=== PATIENT | female | born 1995 | race African-American/Black ===

== ENCOUNTER 2017-02-01 18:44 | Emergency (ER) | payer OTHER ==
[2017-02-01 18:48] VITALS: BP 124/57; BMI 21.5
[2017-02-01] MEDS ORDERED: IBUPROFEN 400 MG TABLET (FP) PO ONE (18:49)
--- NOTE | 2017-02-01 19:14 | PDOC ---
History of Present Illness - General Chief Complaint: Pain Stated Complaint: PAIN Time Seen by Provider: 02/01/17 19:11 History Source: Patient Exam Limitations: No Limitations - History of Present Illness Initial Comments: CHIEF COMPLAINT: 21 y/o febrile, tachycardic female c/o back pain today. HISTORY OF PRESENT ILLNESS: The patient states she woke up this morning feeling like she got "hit by a truck". She states she has had chills all day and left ear pain. She denies trauma to back, fall, RODRIGUEZ, neck pain, n/v/d, CP, SOB, abd pain, hematuria, dysuria. Vital signs on arrival are notable for pulse of 113 secondary to temp of 102. REVIEW OF SYSTEMS: GENERAL/CONSTITUTIONAL: +chills. No weakness. No weight change. HEAD, EYES, EARS, NOSE AND THROAT: No change in vision. No ear pain or discharge. No sore throat. CARDIOVASCULAR: No chest pain or shortness of breath. RESPIRATORY: No cough, wheezing, or hemoptysis. GASTROINTESTINAL: No abd pain, nausea, vomiting, diarrhea. GENITOURINARY: No dysuria, frequency, or change in urination. MUSCULOSKELETAL: No joint or muscle swelling or pain. No neck pain. +back pain. SKIN: No rash or easy bruising. NEUROLOGIC: No headache, vertigo, loss of consciousness, or loss of sensation. PHYSICAL EXAM: GENERAL: The patient is awake, alert, and fully oriented, in no acute distress. Pt is non toxic but ill appearing. HEAD: Normal with no signs of trauma. NECK: No tender, anterior cervical lymphadenopathy. ENT: Pupils equal, round and reactive to light, extraocular movements intact, sclera anicteric, conjunctiva clear. No tonsilar edema, exudate or erythema. Uvula midline. LUNGS: Clear to auscultation bilaterally. Normal excursion. No respiratory distress or use of accessory muscles. CV: RRR, S1/S2, no MRG. Cap refill < 2 sec. ABDOMEN: Soft, non-distended, non-tender even to deep palpation, no hepatomegaly or splenomegaly, no masses. No flank pain. BACK: No CVA TTP b/l. TTP of paravertebral muscles from T12-L1. No midline thoracic or lumbar spine TTP or step offs. EXTREMITIES: Normal range of motion, no edema. NEUROLOGICAL: Normal speech, normal gait. CN II-XII grossly intact. PSYCH: Normal mood, normal affect. SKIN: Warm, dry, normal turgor, no rashes or lesions noted. Past History - Past Medical History Allergies/Adverse Reactions: Allergies Allergy/AdvReac Type Severity Reaction Status Date / Time No Known Allergies Allergy Verified 02/01/17 18:48 Home Medications: Ambulatory Orders NK [No Known Home Medication] 02/01/17 Asthma: Yes Other medical history: SICKLE CELL TRAIT - Psycho/Social/Smoking Cessation Hx Suicidal Ideation: No Smoking History: Never smoked Hx Alcohol Use: No Drug/Substance Use Hx: No Hx Substance Use Treatment: No *Physical Exam - Vital Signs Last Vital Signs Temp Pulse Resp BP Pulse Ox 102.0 F H 113 H 20 124/57 100 02/01/17 18:45 02/01/17 18:45 02/01/17 18:45 02/01/17 18:45 02/01/17 18:45 ED Treatment Course - Medications Given in the ED: ED Medications Discontinued Medications Generic Name Dose Route Start Last Admin Trade Name Manny PRN Reason Stop Dose Admin Ibuprofen 400 mg 02/01/17 18:49 02/01/17 18:50 Motrin - PO 02/01/17 18:50 400 mg NOW ONE Administration Medical Decision Making - Medical Decision Making A/P: 21 y/o febrile, tachycardic female with back pain, chills and feeling like she got hit by a bus today. Plan is as follows: 1. Rapid strep 2. Influenza 3. hcg/UA rapid strep - negative Influenza A&B - negative hcg - negative The patient was given all of her results. Her temp and HR have decreased. Informed her she has a viral illness and needs to alternate between tylenol and motrin for fever, drink plenty of fluids and rest. instructed the patient to return to the ER with any worsening or concerning symptoms. The patient verbalizes understanding of all instructions, has no further questions and is awaiting discharge. *DC/Admit/Observation/Transfer Diagnosis at time of Disposition: Viral illness, Musculoskeletal back pain - Discharge Dispostion Disposition: HOME Condition at time of disposition: Improved - Patient Instructions Printed Discharge Instructions: DI for Musculoskeletal Pain, DI for Viral Syndrome Additional Instructions: Discharge Instructions: -Alternate taking 650mg of Tylenol and 400mg of Motrin every 4 hours for fever -Drink plenty of fluids -Get lots of rest -Follow up with your doctor in 1 week -Return to the ER with any worsening or concerning symptoms - Post Discharge Activity Work/School Note: Back to Work
[2017-02-01 19:30] LABS: URINE APPEARANCE CLEAR; URINE BILIRUBIN NEGATIVE (NEGATIVE); URINE BLOOD NEGATIVE (NEGATIVE); URINE COLOR LTYELLOW; URINE GLUCOSE (UA) NEGATIVE (NEGATIVE); URINE KETONE NEGATIVE (NEGATIVE); URINE NITRITE NEGATIVE (NEGATIVE); URINE PROTEIN NEGATIVE (NEGATIVE); URINE UROBILINOGEN 2.0 E.U/dl E.U./dl (0.2-1.0)
[2017-02-01 19:45] VITALS: PULSE 90
[2017-02-01 19:47] LABS: URINE LEUK ESTERASE 1+ (NEGATIVE)
[2017-02-01] MEDS ORDERED: ACETAMINOPHEN 325 MG TABLET (FP) PO ONE (19:53)
[2017-02-01] MEDS ORDERED: ACETAMINOPHEN 325 MG TABLET (FP) ONE (19:55)
[2017-02-01 20:02] LABS: URINE RBC <1 /hpf (0-3); URINE WBC 4 /hpf (3-5)
[2017-02-01 21:00] VITALS: TEMP 99.1
== END 2017-02-01 21:01 | disposition home or self-care (01) ==
LOC: JERFT 18:44
DX: B34.9 Viral infection, unspecified (principal)
CPT/HCPCS: 81003; 81015; 84703; 87070; 87430; 87804; 99281-25

== ENCOUNTER 2018-10-20 14:51 | Emergency (ER) | payer OTHER ==
[2018-10-20 15:02] VITALS: BMI 27.4
--- NOTE | 2018-10-20 15:49 | PDOC ---
History of Present Illness - General Chief Complaint: Headache Stated Complaint: HEADACHE Time Seen by Provider: 10/20/18 15:49 History Source: Patient Exam Limitations: No Limitations - History of Present Illness Initial Comments: 10/20/18 16:02 23 year old female with PMH sickle cell trait 34 weeks presented to ED for headache since 0900 today. Pt admitted to generalized weakness starting yesterday. Pt stated her headache started at 0900 today and is located behind her eyes, wrapping around her head, throbbing, aggravated by light/sound, slowly progressing. Pt stated she feels unsteady walking, which started today at 0900, as though she "cannot feel the ground beneath my feet". Pt admitted to shortness of breath, stating "it feels like it takes more effort to breathe than normal". Pt denied chest pain, cough, fever, runny nose, sore throat, ear pain, lower extremity swelling, abdominal pain, pelvic pain, vaginal bleeding, visual changes, focal weakness. Allergies: NKDA NIH Stroke Scale - Last Known Well Date/Time & Onset Date Last Known Well: 10/20/18 Time Last Known Well: 09:00 - Initial Evaluation Level of consciousness: Alert Ask patient the month and their age: Answers both correctly Ask patient to open & close eyes; make fist and let go: Obeys both correctly Best gaze (horizontal eye movement): Normal Visual field testing: No visual field loss Facial paresis (Show teeth/raise eyebrows/close eyes tight): Normal symmetrical movement Motor Function: Left Arm: Normal Motor Function: Right Arm: Normal (extends arm 90 (or 45) degrees for 10 seconds without drift Motor Function: Left Leg: Normal (extends leg 30 degrees for 5 seconds without drift) Motor Function: Right Leg: Normal (extends leg 30 degrees for 5 seconds without drift) Limb Ataxia: No ataxia Sensory(Use pinprick test arms,legs,trunk,face/side to side): Normal Best language (Describe picture, name items, read sentences): No Aphasia Dysarthria (read several words): Normal articulation Extinction and Inattention: No abnormality - Total Score NIH Stroke Scale Score: 0 Past History - Past Medical History Allergies/Adverse Reactions: Allergies Allergy/AdvReac Type Severity Reaction Status Date / Time pollen extracts Allergy Verified 10/20/18 15:01 Home Medications: Ambulatory Orders Vit 108/Iron/Folic AC [ One Tablet] 1 each PO DAILY 09/03/18 Asthma: Yes COPD: No Other medical history: sickle cell trait - Reproductive History Is Patient Now?: Yes (#): 3 Para: 1 Therapeutic (s) & number: Yes - Suicide/Smoking/Psychosocial Hx Smoking History: Never smoked Information on smoking cessation initiated: No Hx Alcohol Use: No Drug/Substance Use Hx: No Hx Substance Use Treatment: No Review of Systems - Review of Systems Able to Perform ROS?: Yes Comments:: 10/20/18 16:16 General: admitted to generalized weakness, body aches. denied fever, chills. HEENT: denied sore throat, rhinorrhea, ear pain. Heart: denied chest pain, palpitations, syncope, diaphoresis. Respiratory: admitted to shortness of breath. denied cough, sputum production, hemoptysis. Abdomen: denied abdominal pain, nausea, vomiting, diarrhea, constipation, blood in stool. : denied dysuria, increased urinary frequency, hematuria, urinary incontinence , flank pain. Back: denied back pain. Musculoskeletal: denied joint pain, muscle pain, joint swelling. Neurological: admitted to headache, unsteady gait. denied dizziness, numbness, tingling, weakness. Skin: denied rash, laceration, abrasion. *Physical Exam - Vital Signs Last Vital Signs Temp Pulse Resp BP Pulse Ox 98.6 F 73 18 112/57 L 99 10/20/18 14:59 10/20/18 14:59 10/20/18 14:59 10/20/18 14:59 10/20/18 14:59 - Physical Exam Comments: 10/20/18 16:17 Neuro examination limited by pt cooperation. Constitutional: Well-nourished, Well-developed, appearing stated age. HEENT: head is normocephalic, atraumatic. EOMI. PERRLA. Neck: supple. Full ROM. no nuchal rigidity. Heart: regular rhythm. no murmurs, rubs or gallops. Lungs: clear to auscultation bilaterally. no crackles, rhonchi or wheezing. no stridor. Abdomen: soft, nontender, gravid. normal bowel sounds. no rebound, guarding, masses. Extremities: Peripheral pulses intact. No lower extremity edema. Neurological: CN 2-12 intact. 5/5 strength all extremities. Sensation intact. pt ambulated unassisted to bathroom, normal gait. Psych: awake, alert, oriented x3. Follows commands. Answers questions appropriately. Moderate Sedation - Procedure Monitoring Vital Signs: Procedure Monitoring Vital Signs Temperature 98.6 F 10/20/18 14:59 Pulse Rate 73 10/20/18 14:59 Respiratory Rate 18 10/20/18 14:59 Blood Pressure 112/57 L 10/20/18 14:59 O2 Sat by Pulse Oximetry (%) 99 10/20/18 14:59 ED Treatment Course - LABORATORY CBC & Chemistry Diagram: 10/20/18 16:05 10/20/18 16:00 Medical Decision Making - Medical Decision Making 10/20/18 16:36 23 year old female with PMH sickle cell trait 34 weeks presented to ED for headache, generalized weakness, SOB and unsteady gait. Initial Vital Signs Temp Pulse Resp BP Pulse Ox 98.6 F 73 18 112/57 L 99 10/20/18 14:59 10/20/18 14:59 10/20/18 14:59 10/20/18 14:59 10/20/18 14:59 Afebrile. No tachycardia. No tachypnea. Mild diastolic hypotension. - Pt is No hypoxia on room air Labs ordered: CBC, CMP, troponin, BNP, UA/UC, coags, T/S Imaging ordered: Abdomen ultrasound Medications ordered: tylenol IV, normal saline bolus 1000 cc EKG performed at 1634: rate 71, regular rhythm, normal axis, normal intervals, T waves flipped in anterior leads without reciprocal changes. No prior to compare. 10/20/18 16:54 CBC WBC 12.8 K/mm3 (4.0-10.0) H 10/20/18 16:05 RBC 3.45 M/mm3 (3.60-5.2) L 10/20/18 16:05 Hgb 10.5 GM/dL (10.7-15.3) L 10/20/18 16:05 Hct 30.4 % (32.4-45.2) L D 10/20/18 16:05 MCV 88.1 fl (80-96) 10/20/18 16:05 MCH 30.4 pg (25.7-33.7) D 10/20/18 16:05 MCHC 34.5 g/dl (32.0-36.0) 10/20/18 16:05 RDW 13.7 % (11.6-15.6) D 10/20/18 16:05 Plt Count 136 K/MM3 (134-434) 10/20/18 16:05 MPV 10.3 fl (7.5-11.1) 10/20/18 16:05 Absolute Neuts (auto) 9.4 K/mm3 (1.5-8.0) H 10/20/18 16:05 Neutrophils % 73.2 % (42.8-82.8) 10/20/18 16:05 Neutrophils % (Manual) 70.0 % (42.8-82.8) 10/20/18 16:05 Band Neutrophils % 3.0 % 10/20/18 16:05 Lymphocytes % 15.4 % (8-40) D 10/20/18 16:05 Lymphocytes % (Manual) 15.0 % (8-40) 10/20/18 16:05 Monocytes % 10.0 % (3.8-10.2) 10/20/18 16:05 Monocytes % (Manual) 11 % (3.8-10.2) H 10/20/18 16:05 Eosinophils % 0.9 % (0-4.5) 10/20/18 16:05 Eosinophils % (Manual) 1.0 % (0-4.5) 10/20/18 16:05 Basophils % 0.5 % (0-2.0) 10/20/18 16:05 Basophils % (Manual) 0.0 % (0-2.0) 10/20/18 16:05 Nucleated RBC % 0 % (0-0) 10/20/18 16:05 Platelet Estimate Adequate 10/20/18 16:05 Leukocytosis with left shift. Borderline normocytic anemia. Normal platelets. CMP Sodium 138 mmol/L (136-145) 10/20/18 16:00 Potassium 3.5 mmol/L (3.5-5.1) 10/20/18 16:00 Chloride 107 mmol/L (98-107) 10/20/18 16:00 Carbon Dioxide 26 mmol/L (21-32) 10/20/18 16:00 Anion Gap 6 MMOL/L (8-16) L 10/20/18 16:00 BUN 4 mg/dL (7-18) L 10/20/18 16:00 Creatinine 0.5 mg/dL (0.55-1.3) L 10/20/18 16:00 Creat Clearance w eGFR > 60 (>60) 10/20/18 16:00 Random Glucose 82 mg/dL (74-106) 10/20/18 16:00 Calcium 8.0 mg/dL (8.5-10.1) L 10/20/18 16:00 Total Bilirubin 0.2 mg/dL (0.2-1) 10/20/18 16:00 AST 15 U/L (15-37) 10/20/18 16:00 ALT 16 U/L (13-61) 10/20/18 16:00 Alkaline Phosphatase 92 U/L (45-117) 10/20/18 16:00 Troponin I < 0.02 ng/ml (0.00-0.05) 10/20/18 16:00 B-Natriuretic Peptide 52.7 pg/ml (5-125) 10/20/18 16:00 Total Protein 6.4 g/dl (6.4-8.2) 10/20/18 16:00 Albumin 2.9 g/dl (3.4-5.0) L 10/20/18 16:00 No electrolyte abnormalities. No AMY. No transaminitis. Normal troponin. Normal BNP. Normal total bilirubin. Urine Test Results Urine Color Straw 10/20/18 16:24 Urine Appearance Clear 10/20/18 16:24 Urine pH 7.0 (5.0-8.0) 10/20/18 16:24 Ur Specific [place] 1.004 (1.010-1.035) L 10/20/18 16:24 Urine Protein Negative (NEGATIVE) 10/20/18 16:24 Urine Glucose (UA) Negative (NEGATIVE) 10/20/18 16:24 Urine Ketones Negative (NEGATIVE) 10/20/18 16:24 Urine Blood Negative (NEGATIVE) 10/20/18 16:24 Urine Nitrite Negative (NEGATIVE) 10/20/18 16:24 Urine Bilirubin Negative (<2.0 mg/dL) 10/20/18 16:24 Ur Leukocyte Esterase Trace (NEGATIVE) 10/20/18 16:24 Ur Epithelial Cells Rare /HPF (FEW) 10/20/18 16:24 WBC = 4 No bacteria. No UTI. No protein in urine. Influenza A/B testing negative. 10/20/18 17:38 Pt reassessed, reported headache same, reported all over body aches worsening. Neuro examination: romberg positive. finger to nose normal. unsteady gait. 5/5 strength all extremities. full sensation throughout. CN2-12 intact. Hypercoaguable state of plus sickle cell trait concerning for cerebral venous sinus thrombosis. Acute intracranial bleed also on differential. Neuro national account executive, Dr. Molina paged. US shows (+) FHR. - Pending official report. 10/20/18 17:59 I spoke with the patient about the possible need for head CT, and the risks of radiation to herself and the baby. I discussed that we would use a shield for her belly, to minimize radiation to the baby. We discussed that the radiation was less risk to a third trimester than an earlier , and that the risk of not performing the CT would be missing an acute bleed or venous sinus clot, which could be detrimental to her and the baby's health, or even cause . She and her partner stated they understood the risks and would be open to having a CT performed if needed. - Pending neuro recommendations 10/20/18 19:07 Vital Signs Temperature 99.5 F 10/20/18 18:39 Pulse Rate 75 10/20/18 18:39 Respiratory Rate 20 10/20/18 18:39 Blood Pressure 95/68 10/20/18 18:39 O2 Sat by Pulse Oximetry (%) 98 10/20/18 18:39 I spoke with imaging national account executive radiologist, who advised CTA of cerebral arteries with 10 second delay to be able to access for cerebral venous sinus thrombosis. I spoke with Dr. Molina, who recommend above imaging, possible transfer depending on results of CT. He stated he will come to ED to evaluate the patient. 10/20/18 19:16 I spoke with OB national account executive Dr. West, who will consult, stated she will send nurse down to [facility] after CT scan. 10/20/18 19:38 Pt signed consent form for CTA. Pt signed out to Dr. Dowling, who is with patient at bedside at CT. Dr. Molina currently in ED for evaluation of patient. 10/21/18 20:36 Follow up: Official Abdominal US report: single intrauterine gestation mesuring 34 weeks and 4 days. FHR 137 bpm. fetus is in cephalic position. anterior placenta. normal [place]. *DC/Admit/Observation/Transfer Diagnosis at time of Disposition: Migraine - Discharge Dispostion Disposition: HOME Condition at time of disposition: Stable - Referrals Referrals: Jeremy Molina MD [Staff Physician] - Shell Figueredo [Primary Care Provider] - - Patient Instructions Printed Discharge Instructions: DI for Migraine, DI for -- Discomforts and Remedies Additional Instructions: You were seen in the emergency room for a headache and weakness. You were seen by a neurologist and an OB. The neurologist recommended a CT scan of your head which ruled out a brain bleed and a clot in your brain. The neurologist felt that you likely had a migraine which caused your symptoms today. You can take tylenol for your further headaches, and you should follow up with a neurologist for a possible migraine disorder and further evaluation/management of your headaches following your . If you have any further severe or concerning symptoms you should be evaluated by your doctor or return to the emergency department immediately. You should follow up with your primary care physician within one week and with your OB as scheduled. - Post Discharge Activity
[2018-10-20] MEDS ORDERED: SODIUM CHLORIDE 1,000 ML IV STA ×2 (16:02→19:11)
[2018-10-20] MEDS ORDERED: ACETAMINOPHEN 1000 MG/100 ML VIAL (NON FORMULARY) IVPB ONE (16:03)
[2018-10-20] MEDS ORDERED: ACETAMINOPHEN INJECTION 100 ML IVPB ONE (16:09)
[2018-10-20 16:12] LABS: BASO % 0.5 % (0-2.0); EOS % 0.9 % (0-4.5); HEMATOCRIT 30.4 % (32.4-45.2); HEMOGLOBIN 10.5 GM/dL (10.7-15.3); LYMPH % 15.4 % (8-40); MCH 30.4 pg (25.7-33.7); MCHC 34.5 g/dl (32.0-36.0); MEAN CELL VOLUME 88.1 fl (80-96); MEAN PLT VOLUME 10.3 fl (7.5-11.1); NEUT % 73.2 % (42.8-82.8); PLATELET COUNT 136 K/MM3 (134-434); RBC 3.45 M/mm3 (3.60-5.2); RDW 13.7 % (11.6-15.6); WHITE BLOOD COUNT 12.8 K/mm3 (4.0-10.0)
[2018-10-20 16:30] LABS: PLATELET ESTIMATE ADEQUATE
--- NOTE | 2018-10-20 16:34 | PDOC ---
Attending Attestation - HPI HPI: 10/20/18 16:40 The patient is a 23 year old female(34 weeks , not high risk) with a significant past medical history of asthma and sickle cell trait who presents to the emergency department with a headache since earlier today. She states that her headache is localized behind her eyes and worsens with light and sound. She also reports some generalized weakness for about 2 days. She denies any other symptoms. She denies any fever chills, nausea, vomiting, diarrhea, constipation, urinary symptoms. She denies any chest pain, shortness or breath, runny nose or cough. She denies taking any medication for her headache or and past episodes of headache. The patient denies any other complaints. Documentation prepared by Catherine Gan, acting as pediatric medical assistant for Marcia López MD. <Catherine Gan - Last Filed: 10/20/18 16:57> - Resident Resident Name: Leia Salvador - ED Attending Attestation I have performed the following: I have examined & evaluated the patient, The case was reviewed & discussed with the resident, I agree w/resident's findings & plan, Exceptions are as noted - Physicial Exam PE: GENERAL: Awake, alert, and fully oriented, in no acute distress. Appears uncomfortable. HEAD: No signs of trauma EYES: PERRLA, EOMI, sclera anicteric, conjunctiva clear ENT: Auricles normal inspection, hearing grossly normal, nares patent, oropharynx clear without exudates. Moist mucosa NECK: Normal ROM, supple, no lymphadenopathy, JVD, or masses LUNGS: Breath sounds equal, clear to auscultation bilaterally. No wheezes, and no crackles HEART: Regular rate and rhythm, normal S1 and S2, no murmurs, rubs or gallops ABDOMEN: Soft, nontender, normoactive bowel sounds. No guarding, no rebound. No masses EXTREMITIES: Normal range of motion, no edema. No clubbing or cyanosis. No cords, erythema, or tenderness NEUROLOGICAL: Cranial nerves II through XII grossly intact. Normal speech, normal gait. Sensation intact. +Dec strength throughout (4/5). SKIN: Warm, Dry, normal turgor, no rashes or lesions noted. - Medical Decision Making 10/20/18 16:55 Pt with no prior history of headaches now with headache and diffuse weakness. Unclear if exam findings are due to her discomfort (or poor cooperation as a result of discomfort). Will give IV fluids and tylenol while awaiting lab results. If she is not significantly improved, will d/w neuro regarding possible imaging. <Marcia López - Last Filed: 10/20/18 18:05>
[2018-10-20 16:40] LABS: URINE APPEARANCE CLEAR; URINE BILIRUBIN NEGATIVE (<2.0 mg/dL); URINE COLOR STRAW; URINE GLUCOSE (UA) NEGATIVE (NEGATIVE); URINE KETONE NEGATIVE (NEGATIVE); URINE LEUK ESTERASE TRACE (NEGATIVE); URINE NITRITE NEGATIVE (NEGATIVE); URINE PROTEIN NEGATIVE (NEGATIVE); URINE UROBILINOGEN NEGATIVE mg/dL (0.2-1.0)
[2018-10-20 16:42] LABS: EPI CELLS RARE /HPF (FEW)
[2018-10-20 16:47] LABS: ALBUMIN 2.9 g/dl (3.4-5.0); ALK PHOS 92 U/L (45-117); ANION GAP 6 MMOL/L (8-16); BILIRUBIN,TOTAL 0.2 mg/dL (0.2-1); BLOOD UREA NITROGEN 4 mg/dL (7-18); CHLORIDE 107 mmol/L (98-107); CO2 26 mmol/L (21-32); CREATININE 0.5 mg/dL (0.55-1.3); GLUCOSE,RANDOM 82 mg/dL (74-106); N-TERMINAL BNP 52.7 pg/ml (5-125); POTASSIUM 3.5 mmol/L (3.5-5.1); SGOT/AST 15 U/L (15-37); SGPT/ALT 16 U/L (13-61); SODIUM 138 mmol/L (136-145); TOT PROT 6.4 g/dl (6.4-8.2)
--- NOTE | 2018-10-20 19:22 | PDOC ---
*Physical Exam - Vital Signs Last Vital Signs Temp Pulse Resp BP Pulse Ox 99.5 F 75 20 95/68 98 10/20/18 18:39 10/20/18 18:39 10/20/18 18:39 10/20/18 18:39 10/20/18 18:39 - Physical Exam Comments: 10/20/18 19:20 23 yo female 32 weeks with headache and unsteady gait, signout received from day resident. case discussed with Neuro and OB who are aware and will evaluate the patient. Imaging pending. Will follow and rediscuss with neuro and OB pending imaging studies. 10/20/18 19:23 GEN: A&O, no acute distress HEENT: PERRLA, EOMI NECK: supple, no lymphadenopathy HEART: RRR, systolic murmur noted LUNGS: CTA b/l, No wheezes or crackles ABDOMEN: Soft, nontender, appears stated gestation EXTREMITIES: trace peripheral edema, calves nontender NEURO: CN II-XII in tact, no motor deficits noted on limited exam prior to pt receiving CT scan ED Treatment Course - LABORATORY CBC & Chemistry Diagram: 10/20/18 16:05 10/20/18 16:00 - ADDITIONAL ORDERS Additional order review: Laboratory Results 10/20/18 10/20/18 16:24 16:00 Sodium 138 Potassium 3.5 Chloride 107 Carbon Dioxide 26 Anion Gap 6 L BUN 4 L Creatinine 0.5 L Creat Clearance w eGFR > 60 Random Glucose 82 Calcium 8.0 L Total Bilirubin 0.2 AST 15 ALT 16 Alkaline Phosphatase 92 Troponin I < 0.02 B-Natriuretic Peptide 52.7 Total Protein 6.4 Albumin 2.9 L Urine Color Straw Urine Appearance Clear Urine pH 7.0 Ur Specific [place] 1.004 L Urine Protein Negative Urine Glucose (UA) Negative Urine Ketones Negative Urine Blood Negative Urine Nitrite Negative Urine Bilirubin Negative Urine Urobilinogen Negative Ur Leukocyte Esterase Trace Urine WBC (Auto) 4 Urine RBC (Auto) None Ur Epithelial Cells Rare 10/20/18 16:05 RBC 3.45 L MCV 88.1 MCHC 34.5 RDW 13.7 D MPV 10.3 Neutrophils % 73.2 Lymphocytes % 15.4 D Monocytes % 10.0 Eosinophils % 0.9 Basophils % 0.5 - Medications Given in the ED: ED Medications Discontinued Medications Generic Name Dose Route Start Last Admin Trade Name Freq PRN Reason Stop Dose Admin Acetaminophen 1,000 mg 10/20/18 16:03 10/20/18 16:33 Ofirmev Injection - IVPB 10/20/18 16:04 1,000 mg ONCE ONE Administration Sodium Chloride 1,000 mls @ 1,000 mls/hr 10/20/18 16:02 10/20/18 16:33 Normal Saline - IV 10/20/18 17:01 1,000 mls/hr ASDIR STA Administration Medical Decision Making - Medical Decision Making 10/20/18 20:38 CTA Brain and noncontrast CT head done and reviewed by neurology. No signs of Subdural bleed or venous sinus thrombosis. Neurological signs somewhat improved from earlier, and neurology feels this episode was likely a migraine. Recommends neurological evaluation following for further management of migraine disorder. Case discussed with OB who also feels the patient is medically safe to go home following cardiac monitoring. *DC/Admit/Observation/Transfer Diagnosis at time of Disposition: Migraine - Discharge Dispostion Disposition: HOME Condition at time of disposition: Stable Decision to Admit order: No - Referrals Referrals: Shell Figueredo [Primary Care Provider] - Jeremy Molina MD [Staff Physician] - - Patient Instructions Printed Discharge Instructions: DI for Migraine, DI for -- Discomforts and Remedies Additional Instructions: You were seen in the emergency room for a headache and weakness. You were seen by a neurologist and an OB. The neurologist recommended a CT scan of your head which ruled out a brain bleed and a clot in your brain. The neurologist felt that you likely had a migraine which caused your symptoms today. You can take tylenol for your further headaches, and you should follow up with a neurologist for a possible migraine disorder and further evaluation/management of your headaches following your . If you have any further severe or concerning symptoms you should be evaluated by your doctor or return to the emergency department immediately. You should follow up with your primary care physician within one week and with your OB as scheduled. - Post Discharge Activity
[2018-10-20 20:15] LABS: INR 0.95 (0.83-1.09); PROTHROMBIN TIME (PATIENT) 11.2 SEC (9.7-13.0)
[2018-10-20 20:17] LABS: ACTIVATED PTT 27.2 SECONDS (25.2-36.5)
--- NOTE | 2018-10-20 20:50 | CONSULT ---
Consult - text type - Consultation Consultation Note: NEUROLOGY CONSULTATION is greatly appreciated: Events reviewed and discussed with the ED staff and Dr. West. This 23 yo is now 35 weeks in ER with acute headache this AM. PMH sig for Sickle cell trait. She describes episodic headaches since teenage years. These occur about 1/month without obvious precipitating factors. They improved in her pregnancies (none in her first and only this one in her second). Headaches come "out of the blue without warning" as pressure behind her eyes and temples. +N. -V, + PP, +PP +KP and dizziness. Today's headache is identical to her prior, stereotyped, RODRIGUEZ's with all the associated features as well as dizziness and transient unsteadiness. All symptoms are now improving. CT of Head (reviewed): Normal CT Angio (reviewed): normal arterial phase and probably patent interhemispherid sinus. Transverse and sigmoid sinuses are not well visualized. EXAM: Neck supple. In NAD NEURO: MS/Speech: Normal CN II-XII: Normal. Motor: No drift or tremor. Normal strength, tone and bulk. Normal reflexes. Downgoing toes Coord: No FTN dystaxia Sensory: Normal Gait: Normal IMP: Normal Neurological Exam. Migraine headaches. SUGGEST: Await official reading of CTA/delayed phase If inconclusive keep Pt for MR venogram tomorrow monitoring as per Dr. West. Tylenol 1 gm PO q 6 hrs PRN headache. Thank you very much, Jeremy Molina MD
[2018-10-20 22:03] VITALS: BP 110/68; PULSE 88; TEMP 98.2
--- NOTE | 2018-10-21 01:12 | CON.OBG ---
Consult Consult Specialty:: ob consult Referred by:: Leia Ventura ( [facility]) Reason for Consultation:: 34.5 weeks pregn with severe headache - History of Present Illness Chief Complaint: 23 yrs , 34.5 weeks by dates & sono known c/o sickle cell trait , presented in ED with onset of sudden sever headache , behind eyeballs, radiating to temples ,accompanied by dizziness, she is bothered by light ,unable to walk, felt genralized weakness History of Present Illness: pt is known to take care at [address] [place] [address] . panel 04/18/18 Hbsag neg, , Rpr nr, O Pos, [id number], Sickle cell trait ps , significant other not tested , rubella iimune, varicella iimune , hiv nr sono gram done 05/09/18 --11.1 wks , edc by sono 11/27/18 h/ochlamydia & gonorrhea positive , treated with Rocephine & zithromax h/o trichomonasis pos treated 08/23/18 1 hr gtt 69, rpr nr, quantiferon neg last sono done on 10/08/18 vx, 32.5 weeks, dimple 14.1 cm, , efw 2100gm (4'16')-, cx 3.27 - History Source History Provided By: Patient, Medical Record Limitations to Obtaining History: No Limitations - Past Medical History SALES CONSULTING DIRECTOR: Yes: Migraine (?migraine headaches when not , pt decribed when Dr Molina neurologist interrogated her .), Other (headache last month once .) Cardio/Vascular: No: HTN Pulmonary: Yes: Asthma (rx albuterol inhaler prn ) Gastrointestinal: Yes: Other (declined ) Renal/: Yes: UTI (06/2017) ...LMP: 02/20/18 (edc 11/27/18.dates & sono compatible ) ...: Yes ...: 3 (G1 Ind ab 06/2010) ...Para: 1 (G2 40 wks , 7'15" PPH, rx 2 units blood transfusion at [facility]) Heme/Onc: Yes: Anemia, Other (h/o sickle cell trait pos . Her 1st chld also sickle cell trait pos ) Infectious Disease: Yes: STD's (hx herpes gentalia, no recenet out break, , asymptomatic.h/o gonorrhea & chlamydia positive in 2018 ). No: AIDS, HIV, Tuberculosis Psych: No: Addictions, Anxiety, Bipolar, Depression, Panic, Psychosis, Schizophrenia, Other Endocrine: No: Diabetes Insipidus, Diabetes Mellitus, Hyperthyroidism, Hypothyroidism - Past Surgical History Past Surgical History: Yes: None - Alcohol/Substance Use Hx Alcohol Use: No History of Substance Use: reports: None - Smoking History Smoking history: Never smoked - Social History ADL: Independent History of Recent Travel: No Home Medications - Allergies Allergies/Adverse Reactions: Allergies Allergy/AdvReac Type Severity Reaction Status Date / Time pollen extracts Allergy Verified 10/20/18 15:01 - Home Medications Home Medications: Ambulatory Orders Vit 108/Iron/Folic AC [ One Tablet] 1 each PO DAILY 09/03/18 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 No: CVA Tenderness - Left, CVA Tenderness - Right Vaginal Exam: Yes: Normal. No: Bleeding Cervix: Yes: Normal, Other (cx closed long, firm) Uterus: Yes: Other (35 weeks size uterus cephalic presentation FHR Midline 150 bpm no suprapubic tenderness) Adnexa: Not Palpable: Bilateral Breast(s): Yes: WNL Extremities: Yes: WNL. No: Calf Tenderness Edema: No Integumentary: Yes: Tattoos Neurological: Yes: WNL, Alert, Oriented, Cran Nerves II-XII Intact. No: Confusion, Loss of Sensation, Numbness ...Motor Strength: WNL Psychiatric: Yes: WNL, Alert, Oriented Labs: CBC, BMP 10/20/18 16:05 10/20/18 16:00 Laboratory Tests 10/20/18 10/20/18 16:00 16:24 AST 15 ALT 16 Urine Protein Negative Problem List - Problems (1) with 34 completed weeks gestation Code(s): Z3A.34 - 34 WEEKS GESTATION OF (2) Headache Code(s): R51 - HEADACHE Assessment/Plan 23 yrs 34.5 weeks gestation with headache presented ? neuological symptoms . preclempsia, gestational HtN is ruled out head ct scan was done , which I was told by Dr Molina the neurologist that it was neg . Dr Molina told me his imression is Migraine , since she is feeling better whe we both together were ther to see her , he suggested she csn be dischsrged if ob clear. NST was done , no uc noted, FHR 150 bpm, reactive, cat-1 tracing pt is icleaerd obstetrically to be discharged she will continue her prenatl vit drinkplenty po fluids rest po tylenol for headache relaxation ex pt can be discharged
--- NOTE | 2018-10-21 22:12 | EKG ---
Test Reason : Blood Pressure : / mmHG Vent. Rate : 071 BPM Atrial Rate : 071 BPM P-R Int : 138 ms QRS Dur : 070 ms QT Int : 380 ms P-R-T Axes : 061 044 031 degrees QTc Int : 412 ms NORMAL SINUS RHYTHM T WAVE ABNORMALITY, CONSIDER ANTERIOR ISCHEMIA ABNORMAL ECG NO PREVIOUS ECGS AVAILABLE Confirmed by AUSTYN OLIVAS MD ([id number]) on 10/21/2018 10:12:02 PM Referred By: Confirmed By:AUSTYN OLIVAS MD
--- NOTE | 2018-10-22 10:34 | PDOC ---
Patient Follow-up (Call Back) - Post ED Follow - Up Chief Complaint: Headache Condition at time of discharge: Stable Disposition at time of original discharge: HOME Reason for Call Back: Radiology (Received call from Dr. reed who states final read on ct of the head, show possible dilation and recommends follow up MRA, outpatient. Patient called and inform to go to primary physician for referral for outpatient MRI/MRA.)
== END 2018-10-20 22:03 | disposition home or self-care (01) ==
LOC: JER 14:51
PROC: 3E0337Z Introduction of Electrolytic and Water Balance Substance into Peripheral Vein, Percutaneous Approach (ICD-10-PCS; principal; 2018-10-20)
PROC: 3E033NZ Introduction of Analgesics, Hypnotics, Sedatives into Peripheral Vein, Percutaneous Approach (ICD-10-PCS; 2018-10-20)
DX: O26.893 Other specified pregnancy related conditions, third trimester (principal); G43.909 Migraine, unspecified, not intractable, without status migrainosus; O99.013 Anemia complicating pregnancy, third trimester; D57.3 Sickle-cell trait; Z3A.34 34 weeks gestation of pregnancy
CPT/HCPCS: 36415; 70450-TC; 70496-TC; 76815-TC; 80053; 81003; 81015; 83880; 84484; 85025; 85610; 85730; 86850; 86900; 86901; 87086; 87804; 93005; 93010; 96361; 96374; 99284-25; J0131; J7030

== ENCOUNTER 2018-11-24 16:30 | Inpatient (IN) | payer OTHER ==
[2018-11-24 17:23] VITALS: BMI 27.8
[2018-11-24] MEDS ORDERED: DEXTROSE 5%-LACTATED RINGERS 1,000 ML IV SCH (17:45)
[2018-11-24] MEDS ORDERED: BUTORPHANOL TARTRATE 1 MG/ML VIAL IVPB ONE (17:45)
[2018-11-24] MEDS ORDERED: PROMETHAZINE HCL 25 MG/1 ML VIAL IVPB ONE (17:45)
[2018-11-24 17:55] LABS: BASO % 0.7 % (0-2.0); EOS % 0.5 % (0-4.5); HEMATOCRIT 32.9 % (32.4-45.2); HEMOGLOBIN 10.8 GM/dL (10.7-15.3); MCH 27.5 pg (25.7-33.7); MCHC 32.8 g/dl (32.0-36.0); MEAN CELL VOLUME 83.8 fl (80-96); MEAN PLT VOLUME 9.6 fl (7.5-11.1); MONO % 6.5 % (3.8-10.2); NEUT % 79.3 % (42.8-82.8); PLATELET COUNT 148 K/MM3 (134-434); RBC 3.93 M/mm3 (3.60-5.2); RDW 15.1 % (11.6-15.6); WHITE BLOOD COUNT 10.4 K/mm3 (4.0-10.0)
--- NOTE | 2018-11-24 17:57 | HP ---
Admitting History and Physical - Admission Chief Complaint: labor pains History of Present Illness: 23 y/o at term, comes in labor, pt of [facility], gbs neg. Now arom, light mec. sickle cell trait neg fob neg -2016 h/o pph migraines History Source: Patient Limitations to Obtaining History: No Limitations - Past Medical History NETWORK CONTROL TECHNICIAN: Yes: Migraine (?migraine headaches when not , pt decribed when Dr Molina neurologist interrogated her .), Other (headache last month once .) Pulmonary: Yes: Asthma (rx albuterol inhaler prn ) Gastrointestinal: Yes: Other (declined ) Hepatobiliary: No: Cirrhosis, Cholelithiasis, Cholecystitis, Choledocholithiasis , Hepatitis A, Hepatitis B, Hepatitis C, Other Renal/: Yes: UTI (06/2017). No: Renal Failure, Renal Inusuff, BPH, Cancer, Hematuria, Hemodialysis, Neurogenic Bladder, Renal Calculi, Other Reproductive: No: Ectopic , Endometriosis, Fibroids, PID, Polycystic Ovary Syndrome, Postmenopausal, Other ...LMP: 02/20/18 (edc 11/27/18.dates & sono compatible ) ...: 3 ...Para: 1 Heme/Onc: Yes: Anemia, Other (h/o sickle cell trait pos . Her 1st chld also sickle cell trait pos ) Infectious Disease: Yes: STD's (hx herpes gentalia, no recenet out break, , asymptomatic.h/o gonorrhea & chlamydia positive in 2018 ). No: AIDS, HIV, Tuberculosis Psych: No: Addictions, Anxiety, Bipolar, Depression, Panic, Psychosis, Schizophrenia, Other Musculoskeletal: No: Bursitis, Chronic low back pain, Hemiparesis, Hemiplegia, Osteoarthritis, Paraplegia, Other Rheumatology: No: Fibromyalgia, Gout, Lupus, Rheumatoid Arthritis, Sarcoidosis, Vasculitis, Other ENT: No: Allergic Rhinitis, Sinusitis, Other Endocrine: No: Eaton's Disease, Rachel's Disease, Diabetes Insipidus, Diabetes Mellitus, Hyperparathyroidism, Hyperthyroidism, Hypothyroidism, Osteopenia, SIADH, Other - Past Surgical History Past Surgical History: Yes: None - Smoking History Smoking history: Never smoked Have you smoked in the past 12 months: No - Alcohol/Substance Use Hx Alcohol Use: No History of Substance Use: reports: None - Social History ADL: Independent History of Recent Travel: No Home Medications - Allergies Allergies/Adverse Reactions: Allergies Allergy/AdvReac Type Severity Reaction Status Date / Time pollen extracts Allergy Verified 10/20/18 15:01 - Home Medications Home Medications: Ambulatory Orders Vit 108/Iron/Folic AC [ One Tablet] 1 each PO DAILY 09/03/18 Review of Systems - Review of Systems Constitutional: reports: No Symptoms Eyes: reports: No Symptoms HENT: reports: No Symptoms Neck: reports: No Symptoms Cardiovascular: reports: No Symptoms Respiratory: reports: No Symptoms Gastrointestinal: reports: No Symptoms Genitourinary: reports: No Symptoms Breasts: reports: No Symptoms Reported Musculoskeletal: reports: No Symptoms Integumentary: reports: No Symptoms Neurological: reports: No Symptoms Endocrine: reports: No Symptoms Hematology/Lymphatic: reports: No Symptoms Psychiatric: reports: No Symptoms Physical Examination Vital Signs: Vital Signs Temperature 98.1 F 11/24/18 17:15 Pulse Rate 70 11/24/18 17:15 Respiratory Rate 20 11/24/18 17:15 Blood Pressure 126/73 11/24/18 17:15 O2 Sat by Pulse Oximetry (%) Constitutional: Yes: Well Nourished Eyes: Yes: WNL HENT: Yes: WNL Neck: Yes: WNL Cardiovascular: Yes: WNL Respiratory: Yes: WNL Gastrointestinal: Yes: WNL ...Rectal Exam: Yes: WNL Renal/: Yes: WNL Breast(s): Yes: WNL Musculoskeletal: Yes: WNL Extremities: Yes: WNL Assessment/Plan as above admit labs expect
[2018-11-24] MEDS ORDERED: OXYTOCIN 20 UNITS in 0.9% NS 20 UNIT/1,000 ML INFUS.BAG IV ONE (17:59)
[2018-11-24] MEDS ORDERED: ELECTROLYTE-148 SOLN 1,000 ML IV SCH (18:00)
[2018-11-24 18:18] LABS: ANION GAP 10 MMOL/L (8-16); BLOOD UREA NITROGEN 6 mg/dL (7-18); CALCIUM 8.1 mg/dL (8.5-10.1); CHLORIDE 107 mmol/L (98-107); CO2 21 mmol/L (21-32); CREATININE 0.6 mg/dL (0.55-1.3); GLUCOSE,RANDOM 131 mg/dL (74-106); POTASSIUM 3.2 mmol/L (3.5-5.1); SODIUM 138 mmol/L (136-145)
[2018-11-24 18:23] LABS: INR 0.92 (0.83-1.09); PROTHROMBIN TIME (PATIENT) 10.9 SEC (9.7-13.0)
[2018-11-24] MEDS ORDERED: LIDOCAINE HCL 1% PRESERVATIVE FREE - 30ML VIAL ONE (18:57)
[2018-11-24] MEDS ORDERED: BISACODYL 10 MG SUPP.RECT RC PRN (19:26)
[2018-11-24] MEDS ORDERED: ACETAMINOPHEN 325 MG TABLET (FP) PO PRN (19:26)
[2018-11-24] MEDS ORDERED: IBUPROFEN 600 MG TABLET (FP) PO PRN (19:26)
[2018-11-24] MEDS ORDERED: BENZOCAINE 20% 57 GM BOTTLE TP PRN (19:26)
[2018-11-24] MEDS ORDERED: WITCH HAZEL 50% (TUCKS) 40 PAD/JAR PAD TP PRN (19:26)
[2018-11-24] MEDS ORDERED: METHYLERGONOVINE MALEATE 0.2 MG/1 ML AMP IM PRN (19:26)
[2018-11-24] MEDS ORDERED: BENZOCAINE 28 GM HEMORRHOIDAL OINTMENT TP PRN (19:26)
--- NOTE | 2018-11-24 19:28 | PN ---
Delivery - Delivery Vaginal Delivery: No Problems Type of Anesthesia: Local Episiotomy/Laceration: Periurethral Extnsion/lac, 1st degree EBL (cc): 300 Delivery, Single - [place] Feeding Plan Initial Plan: Elected not to breastfeed exclusively throughout hospitalization
[2018-11-24] MEDS ORDERED: OXYTOCIN 20 UNITS in 0.9% NS 20 UNIT/1,000 ML INFUS.BAG IV SCH (19:30)
[2018-11-24] MEDS ORDERED: IBUPROFEN 800 MG/8 ML IJ IVPB ONE ×2 (20:35→20:45)
[2018-11-24] MEDS ORDERED: METHYLERGONOVINE MALEATE 0.2 MG TABLET (FP) PO SCH (20:45)
[2018-11-25] MEDS: METHYLERGONOVINE MALEATE 0.2 MG TABLET (FP) PO SCH ×4 (00:10→17:31)
[2018-11-25] MEDS: IBUPROFEN *ORAL SUSPENSION* 100 MG/5 ML PO PRN ×2 (00:20→08:13)
[2018-11-25] MEDS: ACETAMINOPHEN 650 MG/20.3 ML ORAL SOLUTION (CUPS) PO PRN ×4 (03:37→19:58)
[2018-11-25 09:15] LABS: BASO % 0.2 % (0-2.0); EOS % 0.3 % (0-4.5); HEMATOCRIT 32.9 % (32.4-45.2); HEMOGLOBIN 10.6 GM/dL (10.7-15.3); LYMPH % 14.6 % (8-40); MCH 27.1 pg (25.7-33.7); MCHC 32.3 g/dl (32.0-36.0); MEAN CELL VOLUME 83.9 fl (80-96); NEUT % 75.9 % (42.8-82.8); PLATELET COUNT 151 K/MM3 (134-434); RBC 3.92 M/mm3 (3.60-5.2); RDW 15.6 % (11.6-15.6); WHITE BLOOD COUNT 14.2 K/mm3 (4.0-10.0)
[2018-11-25] MEDS: IBUPROFEN 100 MG/5 ML UNIT DOSE CUPS PO PRN ×2 (14:37→19:59)
[2018-11-25] MEDS ORDERED: SENNOSIDES/DOCUSATE COMBO (SENNA PLUS) TABLET (UD) PO PRN (22:00)
[2018-11-26] MEDS: ACETAMINOPHEN 650 MG/20.3 ML ORAL SOLUTION (CUPS) PO PRN ×3 (00:11→10:32)
[2018-11-26] MEDS: IBUPROFEN 100 MG/5 ML UNIT DOSE CUPS PO PRN ×3 (00:12→10:33)
--- NOTE | 2018-11-26 07:17 | PN ---
Post Progress Note Post Day: 2 Type of Delivery: Vital Signs: Vital Signs Temperature 97.9 F 11/25/18 22:00 Pulse Rate 60 11/25/18 22:00 Respiratory Rate 20 11/25/18 22:00 Blood Pressure 118/63 11/25/18 22:00 O2 Sat by Pulse Oximetry (%) 100 11/24/18 20:30 Breast Exam: Yes: Soft Uterus: Yes: Fundus Firm Abdomen/GI: Yes: Abdomen soft Lochia: Yes: Rubra Lochia, amount: Small Extremities: Yes: Calves non-tender Perineum: Yes: Intact Activity: Ambulating - Labs Labs: CBC WBC 14.2 K/mm3 (4.0-10.0) H 11/25/18 08:30 RBC 3.92 M/mm3 (3.60-5.2) 11/25/18 08:30 Hgb 10.6 GM/dL (10.7-15.3) L 11/25/18 08:30 Hct 32.9 % (32.4-45.2) 11/25/18 08:30 MCV 83.9 fl (80-96) 11/25/18 08:30 MCH 27.1 pg (25.7-33.7) 11/25/18 08:30 MCHC 32.3 g/dl (32.0-36.0) 11/25/18 08:30 RDW 15.6 % (11.6-15.6) 11/25/18 08:30 Plt Count 151 K/MM3 (134-434) 11/25/18 08:30 MPV 10.0 fl (7.5-11.1) 11/25/18 08:30 Absolute Neuts (auto) 10.8 K/mm3 (1.5-8.0) H 11/25/18 08:30 Neutrophils % 75.9 % (42.8-82.8) 11/25/18 08:30 Lymphocytes % 14.6 % (8-40) 11/25/18 08:30 Monocytes % 9.0 % (3.8-10.2) 11/25/18 08:30 Eosinophils % 0.3 % (0-4.5) 11/25/18 08:30 Basophils % 0.2 % (0-2.0) 11/25/18 08:30 Nucleated RBC % 0 % (0-0) 11/25/18 08:30 Assessment/Plan as above doing well dc home
[2018-11-26 12:49] VITALS: BP 106/61; PULSE 63; TEMP 98.3
== END 2018-11-26 12:10 | disposition home or self-care (01) | DRG 560 ==
LOC: JLDR 16:30 → J3W 21:56
PROVIDERS: ADMIT Obstetrics & Gynecology; ATTEND Obstetrics & Gynecology
PROC: 10E0XZZ Delivery of Products of Conception, External Approach (ICD-10-PCS; principal; 2018-11-24)
PROC: 0HQ9XZZ Repair Perineum Skin, External Approach (ICD-10-PCS; 2018-11-24)
DX: O71.82 Other specified trauma to perineum and vulva (principal); Z3A.39 39 weeks gestation of pregnancy; Z37.0 Single live birth
CPT/HCPCS: 36415; 59409; 80048; 85025; 85610; 85730; 86593; 86850; 86900; 86901

== ENCOUNTER 2021-04-19 18:14 | Emergency (ER) | payer OTHER ==
[2021-04-19 18:22] VITALS: BP 105/68; PULSE 68; TEMP 97.6; BMI 23.8
[2021-04-19 22:34] LABS: EPI CELLS 10 /uL (0-25.1); HYALINE CASTS 0 /uL (0-3.1); PH,URINE 5.5 (5.0-8.0); URINE APPEARANCE CLEAR; URINE BACTERIA 127 /uL (0-1359); URINE BILIRUBIN NEGATIVE (NEGATIVE); URINE COLOR YELLOW; URINE GLUCOSE (UA) NEGATIVE (NEGATIVE); URINE KETONE NEGATIVE (NEGATIVE); URINE LEUK ESTERASE NEGATIVE (NEGATIVE); URINE NITRITE NEGATIVE (NEGATIVE); URINE PROTEIN NEGATIVE (NEGATIVE); URINE RBC 18 /uL (0-23.9); URINE UROBILINOGEN 0.2 mg/dL (0.2-1.0); URINE WBC 8 /uL (0-25.8)
== END 2021-04-19 23:13 | disposition home or self-care (01) ==
LOC: JER 18:14
DX: O20.9 Hemorrhage in early pregnancy, unspecified (principal); Z3A.12 12 weeks gestation of pregnancy
CPT/HCPCS: 36415; 76801-TC; 81003; 84702; 86850; 86900; 86901; 99284-25

== ENCOUNTER 2021-05-30 09:49 | Inpatient (IN) | payer OTHER ==
[2021-05-30 10:38] LABS: BASO % 0.2 % (0-2.0); EOS % 0.4 % (0-4.5); HEMATOCRIT 32.9 % (32.4-45.2); HEMOGLOBIN 11.4 GM/dL (10.7-15.3); LYMPH % 6.5 % (8-40); MCH 32.7 pg (25.7-33.7); MCHC 34.7 g/dl (32.0-36.0); MEAN CELL VOLUME 94.1 fl (80-96); MEAN PLT VOLUME 10.7 fl (7.5-11.1); MONO % 5.8 % (3.8-10.2); NEUT % 87.1 % (42.8-82.8); PLATELET COUNT 122 10^3/uL (134-434); RBC 3.49 M/mm3 (3.60-5.2); RDW 12.9 % (11.6-15.6); WHITE BLOOD COUNT 12.5 K/mm3 (4.0-10.0)
[2021-05-30 10:43] LABS: EPI CELLS 4 /uL (0-25.1); HYALINE CASTS 4 /uL (0-3.1); PH,URINE 8.5 (5.0-8.0); URINE APPEARANCE TURBID; URINE BACTERIA >9,000 /uL (0-1359); URINE BILIRUBIN NEGATIVE (NEGATIVE); URINE COLOR YELLOW; URINE GLUCOSE (UA) NEGATIVE (NEGATIVE); URINE KETONE NEGATIVE (NEGATIVE); URINE LEUK ESTERASE 3+ (NEGATIVE); URINE NITRITE POSITIVE (NEGATIVE); URINE PROTEIN 2+ (NEGATIVE); URINE RBC 170 /uL (0-23.9); URINE WBC 5770 /uL (0-25.8)
[2021-05-30] MEDS ORDERED: ACETAMINOPHEN 1000 MG/100 ML VIAL (NON FORMULARY) IVPB ONE (10:49)
[2021-05-30] MEDS ORDERED: SODIUM CHLORIDE 1,000 ML IV STA (10:49)
[2021-05-30] MEDS ORDERED: ACETAMINOPHEN INJECTION 100 ML IVPB ONE (10:59)
[2021-05-30 11:02] LABS: ALBUMIN 3.4 g/dl (3.4-5.0); BLOOD UREA NITROGEN 7.2 mg/dL (7-18); CALCIUM 8.8 mg/dL (8.5-10.1)
[2021-05-30 11:05] LABS: CREATININE 0.6 mg/dL (0.55-1.3)
[2021-05-30 11:07] LABS: BILIRUBIN,TOTAL 0.5 mg/dL (0.2-1); TOT PROT 6.9 g/dl (6.4-8.2)
[2021-05-30] MEDS ORDERED: CEFTRIAXONE 1 GM in DEXTROSE 5%-WATER - 100 ML IVPB ONE (12:43)
[2021-05-30] MEDS ORDERED: SODIUM CHLORIDE 1,000 ML IV SCH (12:45)
[2021-05-30] MEDS ORDERED: CEFTRIAXONE 1 GM/50 ML BAG ONE (12:51)
[2021-05-30] MEDS ORDERED: morphine CARPU-JECT 2 MG/1 ML DISP.SYRIN IVPUSH ONE (13:44)
[2021-05-30] MEDS ORDERED: morphine SULFATE 4 MG/ML VIAL ONE (13:51)
[2021-05-30] MEDS ORDERED: ONDANSETRON 4 MG/2 ML VIAL IVPUSH PRN (16:02)
[2021-05-30] MEDS ORDERED: morphine SULFATE 4 MG/ML VIAL SQ PRN (16:07)
[2021-05-30 16:47] LABS: YEAST NEGATIVE (NEGATIVE)
[2021-05-30] MEDS ORDERED: ALBUTEROL SO4 HFA INHALER IH PRN (18:42)
[2021-05-30 19:50] VITALS: BMI 23.8
[2021-05-30] MEDS: SODIUM CHLORIDE 1,000 ML IV SCH (20:06)
[2021-05-31] MEDS: SODIUM CHLORIDE 1,000 ML IV SCH ×3 (04:20→21:33)
[2021-05-31] MEDS: ACETAMINOPHEN 325 MG TABLET (FP) PO PRN ×2 (04:32→21:33)
[2021-05-31 08:24] LABS: HEMOGLOBIN 9.4 GM/dL (10.7-15.3); MCH 32.3 pg (25.7-33.7); MCHC 34.7 g/dl (32.0-36.0); MEAN CELL VOLUME 93.1 fl (80-96); MEAN PLT VOLUME 10.8 fl (7.5-11.1); PLATELET COUNT 106 10^3/uL (134-434); RDW 12.6 % (11.6-15.6); WHITE BLOOD COUNT 11.1 K/mm3 (4.0-10.0)
[2021-05-31 08:42] LABS: BLOOD UREA NITROGEN 4.4 mg/dL (7-18)
[2021-05-31 08:46] LABS: CREATININE 0.5 mg/dL (0.55-1.3)
[2021-05-31 08:49] LABS: CALCIUM 7.4 mg/dL (8.5-10.1)
[2021-05-31] MEDS ORDERED: ACETAMINOPHEN 1000 MG/100 ML VIAL (NON FORMULARY) IVPB ONE (08:55)
[2021-05-31] MEDS ORDERED: cefTRIAXone SODIUM 1 GM VIAL ONE (09:23)
[2021-05-31] MEDS ORDERED: DEXTROSE 5%-WATER - 50 ML IVPB ONE (09:23)
[2021-05-31] MEDS ORDERED: PT OWN MED DRAWER 7, Y5N ONE (09:23)
[2021-05-31] MEDS ORDERED: MV MN PO SCH (10:00)
[2021-05-31] MEDS ORDERED: HERBAL PO SCH (10:00)
[2021-05-31] MEDS ORDERED: [UNRECOGNIZED DRUG - OTHER] PO SCH (10:00)
[2021-05-31] MEDS ORDERED: IRON PO SCH (10:00)
[2021-05-31] MEDS ORDERED: DIGESTIVE PO SCH (10:00)
[2021-05-31] MEDS: CEFTRIAXONE 1 GM in DEXTROSE 5%-WATER - 50 ML IVPB SCH (10:14)
[2021-05-31] MEDS: PRENATAL VITAMINS W/ FOLIC ACID TABLET (FP) PO SCH (11:06)
[2021-05-31] MEDS ORDERED: POTASSIUM CHLORIDE ORAL LIQUID 20 MEQ/15 ML PO ONE (12:09)
[2021-06-01] MEDS: SODIUM CHLORIDE 1,000 ML IV SCH ×2 (05:52→14:53)
[2021-06-01] MEDS ORDERED: PT OWN MED DRAWER 7, Y5N ONE (09:21)
[2021-06-01] MEDS ORDERED: cefTRIAXone SODIUM 1 GM VIAL ONE (09:21)
[2021-06-01] MEDS ORDERED: DEXTROSE 5%-WATER - 50 ML IVPB ONE (09:22)
[2021-06-01] MEDS: CEFTRIAXONE 1 GM in DEXTROSE 5%-WATER - 50 ML IVPB SCH (09:26)
[2021-06-01] MEDS: PRENATAL VITAMINS W/ FOLIC ACID TABLET (FP) PO SCH (09:27)
[2021-06-01] MEDS ORDERED: TAMSULOSIN HCL 0.4 MG CAP PO ONE (10:00)
[2021-06-01 10:01] LABS: BASO % 0.4 % (0-2.0); EOS % 1.5 % (0-4.5); HEMATOCRIT 26.6 % (32.4-45.2); HEMOGLOBIN 9.4 GM/dL (10.7-15.3); LYMPH % 15.1 % (8-40); MCH 32.9 pg (25.7-33.7); MCHC 35.2 g/dl (32.0-36.0); MEAN CELL VOLUME 93.5 fl (80-96); MEAN PLT VOLUME 10.8 fl (7.5-11.1); MONO % 8.3 % (3.8-10.2); NEUT % 74.7 % (42.8-82.8); PLATELET COUNT 107 10^3/uL (134-434); RBC 2.84 M/mm3 (3.60-5.2); RDW 12.7 % (11.6-15.6); WHITE BLOOD COUNT 7.4 K/mm3 (4.0-10.0)
[2021-06-01 10:23] LABS: BILIRUBIN,TOTAL 0.4 mg/dL (0.2-1); CALCIUM 8.2 mg/dL (8.5-10.1); CREATININE 0.5 mg/dL (0.55-1.3); TOT PROT 5.5 g/dl (6.4-8.2)
[2021-06-01 10:26] LABS: MAGNESIUM 1.7 mg/dL (1.8-2.4)
[2021-06-01 10:29] LABS: ALBUMIN 2.5 g/dl (3.4-5.0); BLOOD UREA NITROGEN 4.4 mg/dL (7-18)
[2021-06-01] MEDS ORDERED: POTASSIUM CHLORIDE TABS 20 MEQ TABLET.ER (FP) PO ONE (12:19)
[2021-06-01] MEDS ORDERED: MAGNESIUM OXIDE 400 MG TABLET (FP) PO ONE (12:19)
[2021-06-01] MEDS ORDERED: POTASSIUM CHLORIDE ORAL LIQUID 20 MEQ/15 ML PO ONE (13:57)
[2021-06-02] MEDS: SODIUM CHLORIDE 1,000 ML IV SCH (04:09)
[2021-06-02 07:26] VITALS: BP 101/61; PULSE 69; TEMP 98.3
[2021-06-02] MEDS ORDERED: POTASSIUM CHLORIDE ORAL LIQUID 20 MEQ/15 ML PO ONE (08:12)
[2021-06-02 08:13] LABS: ALBUMIN 2.3 g/dl (3.4-5.0); BASO % 0.6 % (0-2.0); BLOOD UREA NITROGEN 4.4 mg/dL (7-18); CALCIUM 7.7 mg/dL (8.5-10.1); EOS % 1.8 % (0-4.5); HEMATOCRIT 26.2 % (32.4-45.2); HEMOGLOBIN 9.2 GM/dL (10.7-15.3); LYMPH % 20.3 % (8-40); MCH 32.5 pg (25.7-33.7); MEAN CELL VOLUME 92.7 fl (80-96); MEAN PLT VOLUME 11.2 fl (7.5-11.1); MONO % 11.4 % (3.8-10.2); NEUT % 65.9 % (42.8-82.8); PLATELET COUNT 112 10^3/uL (134-434); RBC 2.83 M/mm3 (3.60-5.2); RDW 12.5 % (11.6-15.6); WHITE BLOOD COUNT 6.5 K/mm3 (4.0-10.0)
[2021-06-02 08:17] LABS: CREATININE 0.5 mg/dL (0.55-1.3)
[2021-06-02 08:18] LABS: BILIRUBIN,TOTAL 0.2 mg/dL (0.2-1); TOT PROT 5.3 g/dl (6.4-8.2)
[2021-06-02] MEDS ORDERED: TAMSULOSIN HCL 0.4 MG CAP PO SCH (08:30)
[2021-06-02] MEDS ORDERED: PT OWN MED DRAWER 7, Y5N ONE (09:19)
[2021-06-02] MEDS ORDERED: cefTRIAXone SODIUM 1 GM VIAL ONE (09:19)
[2021-06-02] MEDS ORDERED: DEXTROSE 5%-WATER - 50 ML IVPB ONE (09:19)
[2021-06-02] MEDS: PRENATAL VITAMINS W/ FOLIC ACID TABLET (FP) PO SCH (09:25)
[2021-06-02] MEDS: CEFTRIAXONE 1 GM in DEXTROSE 5%-WATER - 50 ML IVPB SCH (09:25)
== END 2021-06-02 16:00 | disposition home or self-care (01) | DRG 566 ==
LOC: JER 09:49 → JERBED 12:41 → J6S 19:29
PROVIDERS: ADMIT Internal Medicine; ATTEND Nurse Practitioner Acute Care
DX: O23.02 Infections of kidney in pregnancy, second trimester (principal); Z3A.15 15 weeks gestation of pregnancy; R33.8 Other retention of urine; N13.30 Unspecified hydronephrosis
CPT/HCPCS: 36415; 76775-TC; 76815-TC; 80048; 80053; 81003; 83690; 83735; 84702; 85025; 85027; 87086; 87186; 99285-25; C9803; J0131; U0003; U0005

== ENCOUNTER 2021-07-13 14:27 | Emergency (ER) | payer OTHER ==
[2021-07-13 14:48] VITALS: BMI 25.6
[2021-07-13 16:30] LABS: BASO % 0.5 % (0-2.0); EOS % 1.5 % (0-4.5); HEMATOCRIT 32.4 % (32.4-45.2); HEMOGLOBIN 11.2 GM/dL (10.7-15.3); LYMPH % 13.7 % (8-40); MCH 31.9 pg (25.7-33.7); MCHC 34.5 g/dl (32.0-36.0); MEAN CELL VOLUME 92.6 fl (80-96); MONO % 8.4 % (3.8-10.2); NEUT % 75.9 % (42.8-82.8); PLATELET COUNT 128 10^3/uL (134-434); RDW 12.9 % (11.6-15.6); WHITE BLOOD COUNT 11.3 K/mm3 (4.0-10.0)
[2021-07-13 16:54] LABS: ALBUMIN 3.3 g/dl (3.4-5.0); CALCIUM 8.9 mg/dL (8.5-10.1)
[2021-07-13 16:55] LABS: BLOOD UREA NITROGEN 6.8 mg/dL (7-18)
[2021-07-13 16:57] LABS: CREATININE 0.5 mg/dL (0.55-1.3)
[2021-07-13 16:59] LABS: BILIRUBIN,TOTAL 0.3 mg/dL (0.2-1); TOT PROT 6.8 g/dl (6.4-8.2)
[2021-07-13] MEDS ORDERED: FAMOTIDINE 20 MG/50 ML IVPB 20 MG/50 ML MG IVPB ONE ×2 (17:47→18:00)
[2021-07-13 18:20] VITALS: BP 108/61; PULSE 78; TEMP 97.8
== END 2021-07-13 18:21 | disposition home or self-care (01) ==
LOC: JER 14:27
PROC: 3E033NZ Introduction of Analgesics, Hypnotics, Sedatives into Peripheral Vein, Percutaneous Approach (ICD-10-PCS; principal; 2021-07-13)
DX: O26.892 Other specified pregnancy related conditions, second trimester (principal); R10.13 Epigastric pain; Z3A.22 22 weeks gestation of pregnancy
CPT/HCPCS: 36415; 76700-TC; 80053; 83690; 85025; 99285-25

== ENCOUNTER 2021-11-19 10:49 | Inpatient (IN) | payer OTHER ==
[2021-11-19] MEDS ORDERED: BUTORPHANOL TARTRATE 1 MG/ML VIAL IVPB ONE (12:32)
[2021-11-19] MEDS ORDERED: PROMETHAZINE HCL 25 MG/1 ML VIAL IVPUSH ONE (12:32)
[2021-11-19] MEDS ORDERED: SODIUM PHOSPHATE/NA BIPHOS 133 ML ENEMA PR ONE (12:34)
[2021-11-19 12:58] VITALS: BMI 31.5
[2021-11-19] MEDS ORDERED: DINOPROSTONE 10 MG VAGINAL SUPPOSITORY VG ONE (13:00)
[2021-11-19 16:56] LABS: EPI CELLS 7 /uL (0-25.1); HYALINE CASTS 0 /uL (0-3.1); PH,URINE 6.5 (5.0-8.0); URINE APPEARANCE CLEAR; URINE BACTERIA 10 /uL (0-1359); URINE BILIRUBIN NEGATIVE (NEGATIVE); URINE COLOR YELLOW; URINE GLUCOSE (UA) NEGATIVE (NEGATIVE); URINE KETONE NEGATIVE (NEGATIVE); URINE LEUK ESTERASE TRACE (NEGATIVE); URINE NITRITE NEGATIVE (NEGATIVE); URINE PROTEIN NEGATIVE (NEGATIVE); URINE RBC 9 /uL (0-23.9); URINE UROBILINOGEN 0.2 mg/dL (0.2-1.0); URINE WBC 14 /uL (0-25.8)
[2021-11-19] MEDS: DEXTROSE 5%-LACTATED RINGERS 1,000 ML IV SCH (23:50)
[2021-11-20] MEDS ORDERED: OXYTOCIN 30 UNITS in 0.9% NS 30 UNIT/500 ML INFUS.BAG IVPB SCH (02:15)
[2021-11-20] MEDS: DEXTROSE 5%-LACTATED RINGERS 1,000 ML IV SCH (04:15)
[2021-11-20] MEDS ORDERED: OXYTOCIN 30 UNITS in 0.9% NS 30 UNIT/500 ML INFUS.BAG IVPB ONE (04:28)
[2021-11-20] MEDS ORDERED: BUTORPHANOL TARTRATE 2 MG/ML VIAL ONE (10:41)
[2021-11-20] MEDS ORDERED: PROMETHAZINE HCL 25 MG/1 ML VIAL ONE (10:41)
[2021-11-20] MEDS ORDERED: OXYTOCIN 20 UNITS in 0.9% NS 20 UNIT/1,000 ML INFUS.BAG IV ONE (11:21)
[2021-11-20] MEDS ORDERED: WITCH HAZEL 50% (TUCKS) 40 PAD/JAR PAD TP PRN (11:55)
[2021-11-20] MEDS ORDERED: IBUPROFEN 600 MG TABLET (FP) PO PRN (11:55)
[2021-11-20] MEDS ORDERED: BISACODYL 10 MG SUPP.RECT RC PRN (11:55)
[2021-11-20] MEDS ORDERED: METHYLERGONOVINE MALEATE 0.2 MG/1 ML AMP IM PRN (11:55)
[2021-11-20] MEDS ORDERED: ACETAMINOPHEN 325 MG TABLET (FP) PO PRN (11:55)
[2021-11-20] MEDS ORDERED: BENZOCAINE 28 GM HEMORRHOIDAL OINTMENT TP PRN (11:55)
[2021-11-20] MEDS ORDERED: BENZOCAINE 20% 57 GM BOTTLE TP PRN (11:55)
[2021-11-20] MEDS ORDERED: oxyCODONE HCL 5 MG TABLET PO PRN (11:55)
[2021-11-20] MEDS ORDERED: OXYTOCIN 20 UNITS in 0.9% NS 20 UNIT/1,000 ML INFUS.BAG IV SCH (12:00)
[2021-11-20 12:54] LABS: CORD BASE EXCESS -7.3 mmol/L (0-2); CORD HCO3 21.5 mmHg (20-29); CORD PCO2 56.4 mmHg (30-78); CORD pH 7.199 (7.14-7.44)
[2021-11-20 12:57] LABS: CORD BASE EXCESS -2.5 mmol/L (0-2); CORD HCO3 22.6 mmHg (20-29); CORD PCO2 40.6 mmHg (30-78); CORD pH 7.364 (7.14-7.44)
[2021-11-20] MEDS: IBUPROFEN 100 MG/5 ML UNIT DOSE CUPS PO PRN ×2 (16:28→23:13)
[2021-11-20] MEDS: FERROUS SO4 325 MG TABLET (FP) PO SCH (16:31)
[2021-11-21 08:55] LABS: BASO % 0.4 % (0-2.0); EOS % 1.2 % (0-4.5); HEMATOCRIT 23.3 % (32.4-45.2); HEMOGLOBIN 7.6 GM/dL (10.7-15.3); LYMPH % 18.3 % (8-40); MCH 25.9 pg (25.7-33.7); MCHC 32.5 g/dl (32.0-36.0); MEAN CELL VOLUME 79.7 fl (80-96); MEAN PLT VOLUME 10.1 fl (7.5-11.1); MONO % 9.2 % (3.8-10.2); NEUT % 70.9 % (42.8-82.8); PLATELET COUNT 123 10^3/uL (134-434); RBC 2.93 M/mm3 (3.60-5.2); WHITE BLOOD COUNT 10.8 K/mm3 (4.0-10.0)
[2021-11-21] MEDS: PRENATAL VITAMINS W/ FOLIC ACID TABLET (FP) PO SCH (09:27)
[2021-11-21] MEDS: FERROUS SO4 325 MG TABLET (FP) PO SCH ×4 (09:27→17:09)
[2021-11-21] MEDS ORDERED: IRON SUCROSE INJECTION 200 MG in SODIUM CHLORIDE 90 ML IVPB ONE (10:18)
[2021-11-21] MEDS: IBUPROFEN 100 MG/5 ML UNIT DOSE CUPS PO PRN (13:17)
[2021-11-21] MEDS ORDERED: SENNOSIDES/DOCUSATE COMBO (SENNA PLUS) TABLET (UD) PO PRN (22:00)
[2021-11-22] MEDS: IBUPROFEN 100 MG/5 ML UNIT DOSE CUPS PO PRN (02:44)
[2021-11-22] MEDS: PRENATAL VITAMINS W/ FOLIC ACID TABLET (FP) PO SCH (09:16)
[2021-11-22] MEDS: FERROUS SO4 325 MG TABLET (FP) PO SCH (09:16)
[2021-11-22 14:35] VITALS: BP 103/57; PULSE 74; TEMP 98.2
== END 2021-11-22 16:45 | disposition home or self-care (01) | DRG 560 ==
LOC: JLDR 10:49 → J3W 11-20 14:08
PROVIDERS: ADMIT Obstetrics & Gynecology; ATTEND Obstetrics & Gynecology
PROC: 10E0XZZ Delivery of Products of Conception, External Approach (ICD-10-PCS; principal; 2021-11-20)
DX: O48.0 Post-term pregnancy (principal); Z3A.40 40 weeks gestation of pregnancy; O69.81X0 Labor and delivery complicated by cord around neck, without compression, not applicable or unspecified; Z37.0 Single live birth
CPT/HCPCS: 36415; 36600; 59409; 80053; 81003; 82803; 85025; 85610; 86780; 86850; 86900; 86901; 87086; C9803-CS; J1756; U0003; U0005

== ENCOUNTER 2022-12-03 01:30 | Emergency (ER) | payer OTHER ==
[2022-12-03 01:39] VITALS: BP 125/71; PULSE 69; RESP 16; TEMP 98.2; BMI 26.5
[2022-12-03] MEDS ORDERED: MECLIZINE HCL 25 MG TABLET (FP) PO ONE (02:19)
[2022-12-03] MEDS ORDERED: MECLIZINE HCL 25 MG TABLET (FP) ONE (02:35)
[2022-12-03] MEDS ORDERED: ACETAMINOPHEN 650 MG/20.3 ML ORAL SOLUTION (CUPS) PO ONE (02:48)
[2022-12-03 03:36] LABS: THROAT:GRP A STREP NOT DETECTED (NOTDETECTED)
[2022-12-03] MEDS ORDERED: AMOX TR/POT CLAV 875MG/125MG TABLETS (FP) PO ONE (03:48)
[2022-12-03] MEDS ORDERED: AMOX TR/POT CLAV 875MG/125MG TABLETS (FP) ONE (03:51)
== END 2022-12-03 03:54 | disposition home or self-care (01) ==
LOC: JER 01:30
DX: H66.91 Otitis media, unspecified, right ear (principal); Z20.822 Contact with and (suspected) exposure to COVID-19
CPT/HCPCS: 0241U-QW; 87070; 87651; 99283-25

== ENCOUNTER 2024-07-10 09:46 | Observation (INO) | payer OTHER ==
[2024-07-10] MEDS ORDERED: morphine SULFATE 4 MG/ML VIAL ONE ×3 (10:30→13:57)
[2024-07-10] MEDS ORDERED: MORPHINE SULFATE 2 MG/ML SYRINGE ONE ×2 (10:31→11:21)
[2024-07-10] MEDS: morphine CARPU-JECT 4 MG/1 ML DISP.SYRIN IVPUSH ONE ×3 (10:45→14:10)
[2024-07-10 11:01] LABS: BASO % 0.8 % (0-2.0); EOS % 2.2 % (0-4.5); HEMATOCRIT 40.4 % (32.4-45.2); HEMOGLOBIN 13.7 GM/dL (10.7-15.3); LYMPH % 27.8 % (8-40); MCH 31.1 pg (25.7-33.7); MCHC 33.9 g/dl (32.0-36.0); MEAN CELL VOLUME 91.7 fl (80-96); MEAN PLT VOLUME 10.3 fl (7.5-11.1); MONO % 9.8 % (3.8-10.2); NEUT % 59.4 % (42.8-82.8); PLATELET COUNT 172 10^3/uL (134-434); RDW 12.4 % (11.6-15.6); WHITE BLOOD COUNT 5.3 K/mm3 (4.0-10.0)
[2024-07-10 11:07] LABS: INR 1.09 (0.83-1.09); PROTHROMBIN TIME (PATIENT) 12.3 SEC (9.7-13.0)
[2024-07-10 11:19] LABS: POTASSIUM 3.8 mmol/L (3.5-5.1)
[2024-07-10 11:21] LABS: CALCIUM 9.1 mg/dL (8.5-10.1)
[2024-07-10 11:22] LABS: ALBUMIN 4.1 g/dl (3.4-5.0); BLOOD UREA NITROGEN 10.4 mg/dL (7-18)
[2024-07-10 11:25] LABS: CREATININE 0.8 mg/dL (0.55-1.3)
[2024-07-10 11:26] LABS: BILIRUBIN,TOTAL 0.6 mg/dL (0.2-1); TOT PROT 7.4 g/dl (6.4-8.2)
[2024-07-10] MEDS ORDERED: CYCLOBENZAPRINE HCL 5 MG TABLET PO PRN (15:03)
[2024-07-10] MEDS ORDERED: CYCLOBENZAPRINE HCL 5 MG TABLET PO ONE (15:03)
[2024-07-10] MEDS ORDERED: ACETAMINOPHEN 500 MG TABLET (FP) PO PRN (15:09)
[2024-07-10] MEDS ORDERED: MORPHINE SULFATE 2 MG/ML SYRINGE IM PRN (15:13)
[2024-07-10 15:20] LABS: EPI CELLS 2 /uL (0-25.1); HYALINE CASTS 0 /uL (0-3.1); PH,URINE 6.5 (5.0-8.0); URINE APPEARANCE CLEAR; URINE BACTERIA 2665 /uL (0-1359); URINE BILIRUBIN NEGATIVE (NEGATIVE); URINE COLOR YELLOW; URINE GLUCOSE (UA) NEGATIVE (NEGATIVE); URINE KETONE NEGATIVE (NEGATIVE); URINE LEUK ESTERASE NEGATIVE (NEGATIVE); URINE NITRITE POSITIVE (NEGATIVE); URINE PROTEIN NEGATIVE (NEGATIVE); URINE RBC 5 /uL (0-23.9); URINE UROBILINOGEN 0.2 mg/dL (0.2-1.0); URINE WBC 8 /uL (0-25.8)
[2024-07-10 16:41] VITALS: BMI 25.0
[2024-07-10] MEDS: PANTOPRAZOLE 40 MG TABLET PO SCH (17:06)
[2024-07-10] MEDS: KETOROLAC TROMETHAMINE 30 MG/1 ML VIAL IVPUSH ONE (17:07)
[2024-07-10] MEDS: LIDOCAINE 5% TOPICAL PATCH TP SCH (17:10)
[2024-07-10] MEDS: CYCLOBENZAPRINE HCL 5 MG TABLET PO ONE (17:23)
[2024-07-10] MEDS: DEXAMETHASONE SOD PHOSPHATE 10 MG/1 ML VIAL IVPUSH ONE (20:29)
[2024-07-10] MEDS: ACETAMINOPHEN 1000 MG/100 ML BAG IVPB ONE (20:29)
[2024-07-11] MEDS: CYCLOBENZAPRINE HCL 5 MG TABLET PO SCH (00:19)
[2024-07-11] MEDS: CELECOXIB 200 MG CAPSULE PO SCH (00:19)
[2024-07-11] MEDS: LIDOCAINE PATCH REMOVAL MC SCH (00:20)
[2024-07-11] MEDS: traMADol HCL 50 MG TABLET PO PRN (08:37)
[2024-07-11] MEDS: GABAPENTIN 100 MG CAPSULE PO SCH (09:43)
[2024-07-11] MEDS: TAMSULOSIN HCL 0.4 MG CAP PO SCH (09:44)
[2024-07-11] MEDS: DEXAMETHASONE 4 MG TABLET (FP) PO SCH (09:44)
[2024-07-11] MEDS: ENOXAPARIN NA (PORCINE) 40 MG/0.4 ML DISP.SYRIN SQ SCH (09:45)
[2024-07-11 09:56] LABS: BASO % 0.1 % (0-2.0); HEMATOCRIT 38.6 % (32.4-45.2); HEMOGLOBIN 13.5 GM/dL (10.7-15.3); LYMPH % 11.5 % (8-40); MCH 31.5 pg (25.7-33.7); MCHC 34.9 g/dl (32.0-36.0); MEAN CELL VOLUME 90.3 fl (80-96); MEAN PLT VOLUME 10.5 fl (7.5-11.1); MONO % 2.9 % (3.8-10.2); NEUT % 85.5 % (42.8-82.8); PLATELET COUNT 192 10^3/uL (134-434); RBC 4.28 M/mm3 (3.60-5.2); RDW 12.3 % (11.6-15.6); WHITE BLOOD COUNT 8.1 K/mm3 (4.0-10.0)
[2024-07-11 10:18] LABS: ALBUMIN 3.7 g/dl (3.4-5.0)
[2024-07-11 10:19] LABS: BLOOD UREA NITROGEN 15.2 mg/dL (7-18); MAGNESIUM 2.1 mg/dL (1.8-2.4)
[2024-07-11 10:22] LABS: CREATININE 0.9 mg/dL (0.55-1.3); PHOSPHOROUS 3.2 mg/dL (2.5-4.9)
[2024-07-11 10:23] LABS: BILIRUBIN,TOTAL 0.5 mg/dL (0.2-1); TOT PROT 6.9 g/dl (6.4-8.2)
[2024-07-11] MEDS: ACETAMINOPHEN 500 MG TABLET (FP) PO SCH (12:46)
[2024-07-11] MEDS: BETHANECHOL CHLORIDE 10 MG TABLET PO SCH (12:46)
[2024-07-11] MEDS: CEFTRIAXONE 1 G/50 ML PREMIX 50 ML IVPB SCH (13:41)
[2024-07-11] MEDS: LACTOBACILLUS ACIDOPHILUS 1 TABLET PO SCH (17:38)
[2024-07-11] MEDS: FLUCONAZOLE 150 MG TABLET PO ONE (17:38)
[2024-07-12 12:34] LABS: BASO % 0.2 % (0-2.0); EOS % 0.3 % (0-4.5); HEMATOCRIT 37.1 % (32.4-45.2); HEMOGLOBIN 12.6 GM/dL (10.7-15.3); LYMPH % 14.2 % (8-40); MCHC 33.9 g/dl (32.0-36.0); MEAN CELL VOLUME 91.5 fl (80-96); MEAN PLT VOLUME 10.3 fl (7.5-11.1); MONO % 3.5 % (3.8-10.2); NEUT % 81.8 % (42.8-82.8); PLATELET COUNT 179 10^3/uL (134-434); RBC 4.05 M/mm3 (3.60-5.2); RDW 12.6 % (11.6-15.6); WHITE BLOOD COUNT 9.7 K/mm3 (4.0-10.0)
[2024-07-12 13:02] LABS: POTASSIUM 3.5 mmol/L (3.5-5.1)
[2024-07-12 13:05] LABS: ALBUMIN 3.5 g/dl (3.4-5.0); CALCIUM 8.7 mg/dL (8.5-10.1)
[2024-07-12 13:06] LABS: BLOOD UREA NITROGEN 8.4 mg/dL (7-18)
[2024-07-12 13:10] LABS: BILIRUBIN,TOTAL 0.4 mg/dL (0.2-1); TOT PROT 6.5 g/dl (6.4-8.2)
[2024-07-12] MEDS: POTASSIUM CHLORIDE TABS 20 MEQ TABLET.ER (FP) PO ONE (14:42)
[2024-07-12] MEDS: METHOCARBAMOL 500 MG TABLET PO PRN (17:27)
[2024-07-12] MEDS: oxyCODONE HCL 5 MG TABLET PO ONE (22:03)
[2024-07-13] MEDS: DEXAMETHASONE 4 MG TABLET (FP) PO SCH (09:27)
[2024-07-13 10:34] LABS: BASO % 0.8 % (0-2.0); EOS % 0.7 % (0-4.5); HEMATOCRIT 37.4 % (32.4-45.2); HEMOGLOBIN 12.5 GM/dL (10.7-15.3); LYMPH % 25.5 % (8-40); MCH 30.9 pg (25.7-33.7); MCHC 33.4 g/dl (32.0-36.0); MEAN CELL VOLUME 92.5 fl (80-96); MEAN PLT VOLUME 10.5 fl (7.5-11.1); MONO % 6.4 % (3.8-10.2); NEUT % 66.6 % (42.8-82.8); PLATELET COUNT 183 10^3/uL (134-434); RBC 4.05 M/mm3 (3.60-5.2); RDW 12.3 % (11.6-15.6); WHITE BLOOD COUNT 9.6 K/mm3 (4.0-10.0)
[2024-07-13 10:54] LABS: POTASSIUM 3.4 mmol/L (3.5-5.1)
[2024-07-13 11:03] LABS: ALBUMIN 3.6 g/dl (3.4-5.0)
[2024-07-13 11:04] LABS: BLOOD UREA NITROGEN 6.9 mg/dL (7-18); CALCIUM 8.6 mg/dL (8.5-10.1); MAGNESIUM 1.9 mg/dL (1.8-2.4)
[2024-07-13 11:08] LABS: CREATININE 0.9 mg/dL (0.55-1.3)
[2024-07-13 11:09] LABS: BILIRUBIN,TOTAL 0.3 mg/dL (0.2-1); TOT PROT 6.6 g/dl (6.4-8.2)
[2024-07-14 09:47] LABS: BASO % 0.6 % (0-2.0); EOS % 0.7 % (0-4.5); HEMATOCRIT 35.8 % (32.4-45.2); HEMOGLOBIN 12.2 GM/dL (10.7-15.3); LYMPH % 30.2 % (8-40); MCH 31.2 pg (25.7-33.7); MCHC 34.1 g/dl (32.0-36.0); MEAN CELL VOLUME 91.7 fl (80-96); MEAN PLT VOLUME 10.8 fl (7.5-11.1); NEUT % 60.5 % (42.8-82.8); PLATELET COUNT 173 10^3/uL (134-434); RBC 3.91 M/mm3 (3.60-5.2); RDW 12.1 % (11.6-15.6); WHITE BLOOD COUNT 9.8 K/mm3 (4.0-10.0)
[2024-07-14 10:09] LABS: POTASSIUM 3.5 mmol/L (3.5-5.1)
[2024-07-14 10:12] LABS: CALCIUM 8.2 mg/dL (8.5-10.1)
[2024-07-14 10:13] LABS: ALBUMIN 3.2 g/dl (3.4-5.0)
[2024-07-14 10:16] LABS: CREATININE 0.7 mg/dL (0.55-1.3)
[2024-07-14 10:18] LABS: BILIRUBIN,TOTAL 0.4 mg/dL (0.2-1); TOT PROT 6.4 g/dl (6.4-8.2)
[2024-07-15 09:36] LABS: BASO % 0.4 % (0-2.0); EOS % 0.6 % (0-4.5); HEMATOCRIT 37.5 % (32.4-45.2); HEMOGLOBIN 12.9 GM/dL (10.7-15.3); LYMPH % 28.3 % (8-40); MCH 31.4 pg (25.7-33.7); MCHC 34.4 g/dl (32.0-36.0); MEAN CELL VOLUME 91.3 fl (80-96); MEAN PLT VOLUME 10.4 fl (7.5-11.1); MONO % 6.7 % (3.8-10.2); PLATELET COUNT 179 10^3/uL (134-434); RBC 4.11 M/mm3 (3.60-5.2); RDW 12.6 % (11.6-15.6); WHITE BLOOD COUNT 10.1 K/mm3 (4.0-10.0)
[2024-07-15 10:03] LABS: POTASSIUM 3.3 mmol/L (3.5-5.1)
[2024-07-15 10:13] LABS: ALBUMIN 3.4 g/dl (3.4-5.0); BLOOD UREA NITROGEN 9.9 mg/dL (7-18); CALCIUM 8.6 mg/dL (8.5-10.1)
[2024-07-15 10:16] LABS: CREATININE 0.8 mg/dL (0.55-1.3)
[2024-07-15 10:18] LABS: BILIRUBIN,TOTAL 0.4 mg/dL (0.2-1); TOT PROT 6.5 g/dl (6.4-8.2)
[2024-07-15] MEDS: CEPHALEXIN MONOHYDRATE 500 MG CAPSULE (UD) PO SCH (11:39)
[2024-07-15 11:50] VITALS: BP 109/61; PULSE 66; RESP 18; TEMP 98.2
== END 2024-07-15 14:09 | disposition home or self-care (01) ==
LOC: JER 09:46 → JERBED 14:13 → J8W 15:59
PROVIDERS: ADMIT Internal Medicine; ATTEND Nurse Practitioner Acute Care
PROC: 3E03329 Introduction of Other Anti-infective into Peripheral Vein, Percutaneous Approach (ICD-10-PCS; principal; 2024-07-10)
PROC: 3E033GC Introduction of Other Therapeutic Substance into Peripheral Vein, Percutaneous Approach (ICD-10-PCS; 2024-07-10)
PROC: 3E023GC Introduction of Other Therapeutic Substance into Muscle, Percutaneous Approach (ICD-10-PCS; 2024-07-10)
PROC: 3E0333Z Introduction of Anti-inflammatory into Peripheral Vein, Percutaneous Approach (ICD-10-PCS; 2024-07-10)
PROC: 3E023NZ Introduction of Analgesics, Hypnotics, Sedatives into Muscle, Percutaneous Approach (ICD-10-PCS; 2024-07-10)
DX: N39.0 Urinary tract infection, site not specified (principal); V43.52XA Car driver injured in collision with other type car in traffic accident, initial encounter; Y93.89 Activity, other specified; Y92.410 Unspecified street and highway as the place of occurrence of the external cause; M54.9 Dorsalgia, unspecified; S70.02XA Contusion of left hip, initial encounter; R33.9 Retention of urine, unspecified; D57.3 Sickle-cell trait; B37.31 Acute candidiasis of vulva and vagina; M25.552 Pain in left hip; R20.2 Paresthesia of skin; M54.59 Other low back pain; Z29.9 Encounter for prophylactic measures, unspecified
CPT/HCPCS: 36415; 72125-TC; 72128-TC; 72131-TC; 72148-TC; 72170-TC-FY; 73502-TC-LT-FY; 73552-TC-LT-FY; 73700-TC-RT; 76775-TC; 76856-TC; 80048; 80053; 81003; 83735; 84100; 84703; 85025; 85610; 86850; 86900; 86901; 87086; 87186; 97116-GP; 97161-GP; 99285-25; G0378; J1100

== ENCOUNTER → 2024-08-14 | Day surgery (SDC) | payer OTHER | END | disposition home or self-care (01) | LOC: JRADIR 12:19 | PROVIDERS: ATTEND Orthopaedic Surgery Sports Medicine | PROC: 0SJ Lower Joints, Inspection (ICD-10-PCS; principal; 2024-08-14) | DX: M16.12 Unilateral primary osteoarthritis, left hip (principal) | CPT/HCPCS: 27093; 29860-LT; 73525-TC-FY; 73722-TC; 77002-TC-FY; 84703 ==

== ENCOUNTER 2024-09-05 04:43 | Day surgery (SDC) | payer OTHER ==
[2024-09-04 11:08] VITALS: BMI 29.2
[2024-09-05] MEDS ORDERED: BUPIVACAINE HCL/PF 0.25% (2.5MG/ML) 10 ML VIAL ONE (07:54)
[2024-09-05] MEDS ORDERED: BUPIVACAINE HCL/PF 0.5% (5MG/ML) 10 ML VIAL ONE (07:55)
[2024-09-05] MEDS ORDERED: LIDOCAINE HCL/PF 1% SDV 5ML VIAL ONE (07:55)
[2024-09-05] MEDS ORDERED: TRIAMCINOLONE ACET 40MG/1ML VIAL ONE (07:55)
[2024-09-05] MEDS ORDERED: ACETAMINOPHEN 500 MG TABLET (FP) PO PRN (09:15)
[2024-09-05] MEDS: LIDOCAINE HCL 1% PRESERVATIVE FREE - 30ML VIAL IJ ONE ×3 (11:01)
[2024-09-05] MEDS: BUPIVACAINE HCL/PF 0.5% (5 MG/ML) 30 ML VIAL IJ ONE ×2 (11:02)
[2024-09-05] MEDS: BUPIVACAINE HCL/PF 0.25% (2.5MG/ML) 10 ML VIAL IJ ONE ×2 (11:02→11:03)
[2024-09-05] MEDS: IOHEXOL 180 MG/1 ML ML IJ ONE ×4 (11:02→11:03)
[2024-09-05] MEDS: TRIAMCINOLONE ACET 40MG/1ML VIAL IM ONE ×2 (11:02)
[2024-09-05 11:26] VITALS: BP 111/68; PULSE 64; RESP 18; TEMP 99.1
== END 2024-09-05 11:59 | disposition home or self-care (01) ==
LOC: JASU-SURG 04:43
PROVIDERS: ATTEND Pain Medicine Pain Medicine
PROC: 3E0U3BZ Introduction of Anesthetic Agent into Joints, Percutaneous Approach (ICD-10-PCS; principal; 2024-09-05 11:45)
DX: S73.192A Other sprain of left hip, initial encounter (principal); X58.XXXA Exposure to other specified factors, initial encounter; Y93.9 Activity, unspecified; Y92.9 Unspecified place or not applicable; Y99.9 Unspecified external cause status
CPT/HCPCS: 76000-TC-FY; 81025